=== PATIENT | female | born 1955 | race Two or more races ===

== ENCOUNTER 2023-02-10 06:37 | Day surgery (SDC) | payer OTHER | END 2023-02-10 10:15 | disposition home or self-care (01) | LOC: AMB-ENDOS 06:37 → EDBD 09:45 → AMB-ENDOS 09:45 | PROVIDERS: ATTEND Colon & Rectal Surgery | DX: D12.3 Benign neoplasm of transverse colon (principal); D12.7 Benign neoplasm of rectosigmoid junction; K57.30 Diverticulosis of large intestine without perforation or abscess without bleeding; K64.0 First degree hemorrhoids; R19.4 Change in bowel habit; Z86.010 Personal history of colon polyps; Z20.822 Contact with and (suspected) exposure to COVID-19; Z88.6 Allergy status to analgesic agent ==

== ENCOUNTER 2024-10-05 05:36 | Day surgery (SDC) | payer OTHER ==
[2024-09-27 08:58] LABS: HEMATOCRIT 41.6 % (36.0-45.00); HEMOGLOBIN 14.1 g/dL (12.0-15.00); MEAN CELL VOLUME 89.9 fL (80.00-100.00); MEAN CORPUSCULAR HEMOGLOBIN 30.4 pg (27.00-32.0); MEAN CORPUSCULAR HGB CONC 33.8 g/dl (32.0-36.0); PH,URINE 6.5 (5.0-8.0); PLATELET COUNT 215 K/uL (150-450); RED BLOOD COUNT 4.63 M/uL (4.00-6.00); RED CELL DISTRIBUTION WIDTH 13.5 % (11.5-14.5); URINE APPEARANCE Clear; URINE BILIRRUBIN Negative (NEGATIVE); URINE BLOOD Negative; URINE COLOR Yellow; URINE GLUCOSE Negative (NEGATIVE); URINE KETONE Negative (NEGATIVE); URINE LEUKOCYTE Small; URINE NITRATE Negative; URINE PROTEIN Negative (NEGATIVE)
[2024-09-27 09:03] LABS: URINE EPITHELIAL CELLS 4.2 uL (0.0-38.8); URINE RBC 3.8 uL (0.0-20.8); URINE WBC 2.3 uL (0.0-23.2)
[2024-09-27 09:04] VITALS: BP 120/79
[2024-09-27 09:25] LABS: INR 1.13; PARTIAL THROMBOPLASTIN TIME 25.4 SECONDS (22.0-34.0); PROTHROMBIN TIME 12.2 SECONDS (9.0-11.5)
[2024-09-27 09:54] LABS: ALBUMIN 3.6 gm/dL (3.4-5.0); BILIRUBIN TOTAL 0.54 mg/dL (0.3-1.2); CALCIUM 9.4 mg/dL (8.5-10.1); CREATININE SERUM 0.65 mg/dL (0.55-1.02); GFR 90.11; GLOBULINA 3.7 G/DL (2.4-3.5); POTASSIUM 4.21 mEq/L (3.5-5.1); TOTAL PROTEIN 7.3 gm/dL (6.4-8.2); TSH 2.69 uIU/mL (0.358-3.74)
[~2024-10-05] VITALS: Ht 152.4 cm; Wt 52.2 kg
[~2024-10-05 05:36] MED LIST: SYNTHROID150 MCG PO; VISION VITAMIN1 EAC1 PO; ZESTRIL10 M1; ZESTRIL10 M1 PO
[2024-10-05] MEDS ORDERED: CEFOXITIN SODIUM 2,000 MG VIAL IV ONE (07:28)
[2024-10-05] MEDS ORDERED: POVIDONE-IODINE 118 ML BOTT TOP ONE (07:28)
[2024-10-05] MEDS ORDERED: MORPHINE SULFATE 4 MG/ML VIAL IV PRN (09:15)
[2024-10-05] MEDS ORDERED: PROMETHAZINE HCL 50 MG/ML AMPUL IM ONE (09:15)
[2024-10-05] MEDS ORDERED: MONDOXYNE NL100 MG PO (09:20)
[2024-10-05] MEDS ORDERED: NAPR500T14 PO (09:20)
== END 2024-10-05 11:55 | disposition home or self-care (01) ==
LOC: CIR.AMB 05:36
PROVIDERS: ATTEND Obstetrics & Gynecology
DX: N88.2 Stricture and stenosis of cervix uteri (principal); Z53.09 Procedure and treatment not carried out because of other contraindication; N84.0 Polyp of corpus uteri; E03.8 Other specified hypothyroidism; I10 Essential (primary) hypertension; M19.90 Unspecified osteoarthritis, unspecified site; Z88.6 Allergy status to analgesic agent